=== PATIENT | male | born 1965 | race Caucasian/White ===

== ENCOUNTER 2018-04-06 09:22 | Emergency (ER) | payer SELFPAY ==
[~2018-04-06] VITALS: Ht 172.7 cm; Wt 73.0 kg
[2018-04-06 09:34] VITALS: BP 142/83
== END 2018-04-06 09:51 | disposition left against medical advice (07) ==
LOC: ER 09:22
DX: Z53.21 Procedure and treatment not carried out due to patient leaving prior to being seen by health care provider (principal)